=== PATIENT | female | born 1985 | race Caucasian/White ===

== ENCOUNTER → 2024-09-21 14:49 | Outpatient (REF) | payer OTHER, SELFPAY | LOC: PNTC 14:49 | PROVIDERS: ATTENDING PHYSICIAN Obstetrics & Gynecology Obstetrics | DX: Z36.0 Encounter for antenatal screening for chromosomal anomalies (principal); Z36.82 Encounter for antenatal screening for nuchal translucency | CPT/HCPCS: 76801; 76813 ==

== ENCOUNTER 2024-12-05 17:25 | Emergency (ER) | payer OTHER, SELFPAY ==
[2024-12-05 17:27] VITALS: BP 170/99
[2024-12-05 17:31] VITALS: BP 173/100
[2024-12-05 17:46] VITALS: BP 162/82; BMI 35.1
--- NOTE | 2024-12-05 18:02 | ED.GENMED ---
History of Present Illness
General
Chief Complaint: Nose Bleed
Source: patient
Time Seen by Provider: 12/05/24 17:47
History of Present Illness
History of Present Illness:
39-year-old female with past medical history of migraine disorder, hypertension, anxiety and depression, currently 22 weeks presenting to the emergency department for evaluation of a nosebleed that started around 4:00, patient got concerned
because of the size of the clot that she coughed up as well as came from her nose with symptoms of tingling on her full face and bilateral hands, the tingling sensation is still present but the nosebleed has since stopped. She denies any headaches,
focal weakness or numbness, abnormal bruising, abdominal pain, vaginal bleeding or discharge. Patient notes that she had preeclampsia with 2 previous pregnancies as well as elevated blood pressure with those pregnancies, currently not on any
antihypertensive regiment. Patient follows with health system [facility] and has a follow-up visit scheduled for the of this month
Past History
Past History
ED Past Medical History: Psychiatric and Other (Migraines)
ED Past Surgical History: None
Social History
Tobacco: Non-smoker
Alcohol: None
Drug: None
Personal:
Living: with family
Review of Systems
Review of Systems
All Other Systems: ROS reviewed and negative except as documented in HPI and ROS
Phy Exam
Physical Exam
Physical Exam:
GENERAL: Alert , in no apparent distress
EYE: clear conjunctiva b/l
HEAD: NCAT
ENT: o/p clr, mmm. dried blood anterior right nare. no active bleeding, no septal hematoma
CARDIAC: Regular rate and rhythm .
LUNGS: Clear breath sounds bilaterally, no acute respiratory distress, no wheezes/rales/rhonchi
ABDOMEN: Soft, without focal tenderness, no r/g, no cvat
NEUROLOGICAL: Alert and oriented
SKIN: Warm and dry, skin intact.
MUSCULOSKELETAL: No edema, well perfused.
PSYCH: Normal and appropriate interaction.
Scores
Heart Failure Risk
Heart Failure Risk Score: Not Applicable
Heart Score for Chest Pain Patients
STEMI patient?: Not applicable
Withdrawal Assessment of Alcohol
Withdrawal Assessment Completed?: Not applicable
Course
Orders/Labs/Results
Orders:
Orders
12/05/24 17:55
Comprehensive Metabolic Panel Urgent
12/05/24 17:56
Complete Blood Count/With Diff Urgent
Urinalysis Urgent
Date Specimen was Collected: 12/05/24
Time Specimen was Collected: 17:55
Abnormal Lab Results
12/05/24 12/05/24
17:55 17:56
WBC 11.9 H 10^3/uL
(4.8-10.8)
RBC 4.11 L 10^6/uL
(4.20-5.40)
Hct 35.9 L %
(37.0-47.0)
Abs Immat Gran (auto) 0.1 H 10^3/uL
(0-0.05)
Absolute Neuts (auto) 7.8 H 10^3/uL
(1.4-6.5)
Absolute Monos (auto) 1.0 H 10^3/uL
(0.1-0.6)
Immature Gran % 1.0 H %
(0-0.5)
Sodium 133 L mmol/L
(135-145)
BUN 6 L mg/dl
(7-17)
Creatinine 0.5 L mg/dL
(0.6-1.0)
12/05/24 17:56
12/05/24 17:55
Vital Signs
Initial and Last Documented VS:
Initial Vital Signs
Temp Pulse Resp BP Pulse Ox
98.4 F 95 18 170/99 99
12/05/24 17:27 12/05/24 17:27 12/05/24 17:27 12/05/24 17:27 12/05/24 17:27
Last Documented Vital Signs
Temp Pulse Resp BP Pulse Ox
98.4 F 92 18 132/75 99
12/05/24 17:27 12/05/24 18:57 12/05/24 18:57 12/05/24 18:57 12/05/24 18:07
MDM/Problems Addressed
Differential Diagnosis Includes:
HELLP Syndrome
Pre-eclampsia
Eclampsia
DRESS Syndrome
Hypertension
MDM/Problems Addressed:
39-year-old female presenting to the emergency department for evaluation of a nosebleed that started around 4 PM. At time of my exam nosebleed has since resolved. Patient remains hypertensive. I do have some degree of concern for possible
preeclampsia although patient is early in her second trimester still. Help syndrome also on diagnosis. Will check labs, urine and reassess following. Will try to contact patient's OB to help expedite an outpatient follow-up visit
*Pulse Oximetry
SaO2: 99
Oxygen Mode of Delivery: Room air
Patient hypoxic: no
*Critical Care Note
Total Time (30-74mins, 75-104mins- exclusive of procedures): Not Applicable
Patient Management
Discussion with other providers: Sole Molder
Escalation/DeEscalation of care consider admission/obs:
I spoke to the on-call OB phosphorus processing supervisor at health system and relayed patient's workup here. Printout of labs and urine was provided to the patient. Blood pressure much improved without any intervention. Patient will follow-up in the office with her OB
on Wednesday. She will obtain a cuff to monitor her blood pressure at home. Aware of return precautions to the ER
ED Attending Note
-
Portions of this chart may have been created with voice recognition software.� Occasional wrong word or��sound alike� substitutions may have occurred due to the inherent limitations of voice recognition software.
Discharge Plan
Departure
Patient Disposition: Home (Routine Discharge)
Date of Disposition: 12/05/24
Time of Disposition: 18:55
Patient with high blood pressure during this ER visit?: Yes
Discharge Problem:
Epistaxis, Elevated blood pressure reading
Instructions: BLOOD PRESSURE
Referrals:
Nazia Friedman CRNP [Family Provider, Family Practice]
Interventions
Interventions:
*Risk Screen - Suicide Last Done: 12/05/24 17:30
*General Assessment Last Done: 12/05/24 17:30
*Neglect/Abuse Screening Last Done: 12/05/24 17:30
*ED- Fall Risk Assessment Last Done: 12/05/24 19:04
*ED COVID-19 Vaccine History Last Done: 12/05/24 17:30
*ED Influenza Vaccine History Last Done: 12/05/24 17:30
*Nursing Disposition Last Done: 12/05/24 19:04
ED-EENT Assessment Last Done: 12/05/24 17:48
Discharge Date and Time
Discharge Date/Time: 12/05/24 19:06
Print Language: BANGLADESHI
[2024-12-05 18:14] LABS: Hematocrit 35.9 % (37.0-47.0); Hemoglobin 12.3 g/dL (12.0-16.0); Mean Corp Hgb Conc. 34.3 g/dL (33.0-37.0); Mean Corpuscular Volume 87.3 fL (81.0-99.0); Nucleated Red Blood Cells % 0 %; Platelet Count 283 10^3/uL (130-400); Red Cell Dist. Width 13.8 % (11.5-14.5)
[2024-12-05 18:15] LABS: Urine Character Clear (Clear)
[2024-12-05 18:24] LABS: ALT (SGPT) 22 U/L (0-35); AST (SGOT) 21 U/L (14-36); Albumin 3.5 g/dl (3.5-5.0); Alkaline Phosphatase 65 U/L (38-126); Blood Urea Nitrogen 6 mg/dl (7-17); Calcium 8.7 mg/dl (8.4-10.2); Carbon Dioxide 22 mmol/L (22-30); Chloride 107 mmol/L (98-107); Estimated Creatinine Clearance > 125 ml/min; Glucose 94 mg/dl (70-99); Potassium 3.9 mmol/L (3.5-5.1); Sodium 133 mmol/L (135-145); Total Protein 6.3 g/dl (6.3-8.2); eGFR > 60.00
[2024-12-05 18:30] VITALS: BP 130/80
[2024-12-05 18:57] VITALS: BP 132/75
== END 2024-12-05 19:06 | disposition home or self-care (01) ==
LOC: EMR 17:25
PROVIDERS: Physician Assistant Medical; EMERGENCY PHYSICIAN Emergency Medicine; FAMILY PHYSICIAN Nurse Practitioner Family; REFERRING PHYSICIAN Obstetrics & Gynecology
DX: O99.891 Other specified diseases and conditions complicating pregnancy (principal); R04.0 Epistaxis; O16.2 Unspecified maternal hypertension, second trimester; Z3A.22 22 weeks gestation of pregnancy
CPT/HCPCS: 99283; 80053; 81003; 85025